=== PATIENT | male | born 1965 | race Caucasian/White ===

== ENCOUNTER 2016-10-10 07:42 | Inpatient (IN) | payer MEDICAID ==
[~2016-10-10] VITALS: Ht 182.9 cm; Wt 78.9 kg
[2016-10-10 07:42] VITALS: BP 106/71
[~2016-10-10 07:42] MED LIST: ATIVAN1 M1 PO; FOLATE1 MG PO; TAB-A-VITE1 TA3 PO; VITAMIN B1100 M3 PO
--- NOTE | 2016-10-10 07:49 | NUR ---
Patient amublated to bed 5.
--- NOTE | 2016-10-10 07:50 | NUR ---
51/M BIB EX c/o moderate tremors this am. PT STATES last drink of Vodka yesterday afternoon, admits daily drinker.unable to ambulate. denies visual hallucinations,hx seizure PT STATES HAS N/V BUT DENIES D; SKIN IS PINK/WARM/DRY; AAOX4 UNSTEADY GAIT; LUNGS CLEAR BL; HR EVEN AND REGULAR; PT DENIES ANY FEVER, CP, SOB, OR COUGH AT THIS TIME; PATIENT STATES PAIN OF 0/10 AT THIS TIME; VSS; PATIENT POSITIONED FOR COMFORT; HOB ELEVATED; BEDRAILS UP X2; BED DOWN. ER MD MADE AWARE OF PT STATUS.
--- NOTE | 2016-10-10 07:50 | NUR ---
Note undone in EDM - 10/10/16 at 0954 by MED1 51/M BIB EX c/o moderate tremors this am. PT STATES last drink of Vodka yesterday afternoon, admits daily drinker.unable to ambulate denies visual hallucinations,hx seizure PT STATES HAS N/V BUT DENIES D; SKIN IS PINK/WARM/DRY; AAOX4 UNSTEADY GAIT; LUNGS CLEAR BL; HR EVEN AND REGULAR; PT DENIES ANY FEVER, CP, SOB, OR COUGH AT THIS TIME; PATIENT STATES PAIN OF 0/10 AT THIS TIME; VSS; PATIENT POSITIONED FOR COMFORT; HOB ELEVATED; BEDRAILS UP X2; BED DOWN. ER MD MADE AWARE OF PT STATUS.
[2016-10-10] MEDS ORDERED: DIAZEPAM PFS 10 MG/2 ML SYR IVP ONE (08:10)
[2016-10-10] MEDS ORDERED: NACL 0.9% 1,000 ML IV ONE (08:10)
[2016-10-10] MEDS ORDERED: ONDANSETRON 4 MG/2 ML VIAL IVP ONE (08:15)
[2016-10-10] MEDS ORDERED: POTASSIUM CHLORIDE 10 MEQ TABER PO ONE (09:05)
[2016-10-10] MEDS: NACL 0.9% 1,000 ML IV SCH ×2 (09:18→15:43)
[2016-10-10] MEDS ORDERED: LORazepam 1 MG TAB PO PRN ×2 (09:20)
[2016-10-10] MEDS ORDERED: MULTIVITAMIN-12 10 ML, THIAMINE 100 MG, MAGNESIUM SULFATE 50% 2,000 MG, FOLIC ACID 5 MG... IV SCH (09:20)
[2016-10-10] MEDS ORDERED: MULTIVITAMIN-12 10 ML, THIAMINE 100 MG, MAGNESIUM SULFATE 50% 2,000 MG, FOLIC ACID 5 MG... IV ONE (09:20)
[2016-10-10] MEDS ORDERED: ONDANSETRON 4 MG/2 ML VIAL IVP PRN ×2 (09:20→09:50)
--- NOTE | 2016-10-10 09:40 | NUR ---
CALLED REPORT TO KARLIE NEVES
[2016-10-10] MEDS ORDERED: MORPHINE SULFATE 2 MG/ML SYR IVP PRN (09:50)
[2016-10-10] MEDS ORDERED: HYDROcodone/APAP 5/325 MG 1 TAB TAB PO PRN (09:50)
[2016-10-10] MEDS ORDERED: ALBUTEROL 0.083% 2.5 MG/3 ML NEBU IH PRN (09:50)
[2016-10-10] MEDS ORDERED: ZOLPIDEM 5 MG TAB PO PRN (09:55)
--- NOTE | 2016-10-10 09:58 | NUR ---
Patient will be admitted to care of [facility]. Admited to TELE. Will go to [id number]. Belongings list completed. Report to KARLIE NEVES.
--- NOTE | 2016-10-10 10:04 | NUR ---
PT ADMITTED TO TELEMETRY W/IV PATENT AND RUNNING.
--- NOTE | 2016-10-10 10:14 | NUR ---
PATIENT ADMITTED FROM ER. BROUGHT IN BY CHANTAL. PATIENT IS ALERT AND ORIENTED X4. DENIES N/V HAS TREMORS. DENIES PAIN. BROUGHT IN WITH BANANA BAG RUNNING @ 250ML/HR. IV TO RIGHT FOREARM AND LEFT FOREARM PATENT AND INTACT. PATIENT MADE AWARE OF HOSPITAL ENVIRONMENT AND CALL LIGHT. SAFETY MEASURES ENSURED. FALL PRECAUTIONS IN PLACE. PATIENT VERBALIZED UNDERSTANDING. WILL CONTINUE TO MONITOR.
[2016-10-10 10:25] VITALS: BP 157/88
[2016-10-10] MEDS ORDERED: LORazepam 2 MG/ML VIAL IVP PRN ×2 (10:30)
--- NOTE | 2016-10-10 10:30 | NUR ---
PATIENT SEEN BY PRIMARY MD AT BEDSIDE. PT MEDICATED FOR AGITATION/TREMORS. WILL CONTINUE TO MONITOR.
[2016-10-10] MEDS ORDERED: NICOTINE TRANSD SYS 21 MG/24 HR PATCH TD SCH (10:42)
[2016-10-10] MEDS ORDERED: PNEUMOCOCCAL VACCINE 23 MCG/0.5 ML VIAL IMVAC SCH (11:00)
[2016-10-10 12:00] VITALS: BP 132/81
[2016-10-10] MEDS ORDERED: MAG SULF 2000 MG/WATER PREMIX 50 ML IV SCH (12:00)
[2016-10-10] MEDS ORDERED: MAGNESIUM OXIDE 400 MG TAB PO SCH (12:00)
[2016-10-10] MEDS: LORazepam 1 MG TAB PO SCH ×3 (12:06→23:53)
[2016-10-10] MEDS ORDERED: LORazepam 1 MG TAB PO SCH (13:00)
--- NOTE | 2016-10-10 13:22 | NUR ---
PATIENT SLEEPING. NO S/S OF ACUTE DISTRESS. WILL CONTINUE TO MONITOR.
[2016-10-10] MEDS ORDERED: POTASSIUM CHLORIDE 40 MEQ, LIDOCAINE 1% 25 MG in NACL 0.9% 250 ML IV ONE (14:00)
--- NOTE | 2016-10-10 14:13 | NUR ---
PT SLEEPING, NO S/S OF ACUTE DISTRESS NOTED.
[2016-10-10 16:00] VITALS: BP 145/94
--- NOTE | 2016-10-10 16:00 | NUR ---
PATIENT SEEN BY DR. MCGEE. NEW RECOMMENDATIONS PLACED IN ORDERS BY
--- NOTE | 2016-10-10 17:00 | NUR ---
TREMORS STILL NOTED ON PATIENT PT TO BE MEDICATED ORDERED. NO S/S OF ACUTE DISTRESS.
--- NOTE | 2016-10-10 19:15 | NUR ---
ENDORSED PLAN OF CARE TO NIGHT RN AT PT BEDSIDE. NO S/S OF ACUTE DISTRESS.
--- NOTE | 2016-10-10 19:30 | NUR ---
RECEIVED BEDSIDE REPORT FROM EDINSON ZIEGLER. PATIENT IS ALERT, AWAKE, AND RESTING IN BED. NO SIGNS OF SOB OR RESPIRATORY DISTRESS NOTED. PATIENT IS RECEIVING OXYGEN THERAPY VIA NASAL CANNULA AT 2LPM. VITALS ARE WNL. NO REPORTS OF PAIN OR DISCOMFORT AT THIS TIME. THERE IS A #20 IN THE RIGHT FOREARM RECEIVING K-RIDER. SITE IS DRY, INTACT, AND PATENT. THERE IS ALSO A #18 IN THE LEFT FOREARM RECEIVING NORMAL SALINE AT 180 ML/HR. SITE IS DRY, INTACT, AND PATENT. SCDS ARE IN PLACE FOR VTE PROPHYLAXIS. EXPLAINED PLAN OF CARE TONIGHT TO INCLUDE VITALS Q4H, TELEMETRY MONITORING, AND SCHEDULED MEDICATION ADMINISTRATION. PATIENT VERBALIZED UNDERSTANDING. PATIENT'S NEEDS MET AT THIS TIME. SAFETY MEASURES ENFORCED, WITH CALL LIGHT WITHIN REACH. WILL CONTINUE TO MONITOR PATIENT.
[2016-10-10 20:00] VITALS: BP 133/81
--- NOTE | 2016-10-10 20:17 | NUR ---
NO DISTRESS/SOB/WHEEZING NOTED AT THIS TIME. NO INDICATION FOR HHN PRN TX.
--- NOTE | 2016-10-10 20:29 | NUR ---
PATIENT REQUESTED SCDS TO BE REMOVED FOR HS. EXPLAINED INDICATIONS AND BENEFITS FOR SCDS FOR VTE PROPHYLAXIS. PATIENT VERBALIZED UNDERSTANDING, BUT REQUESTED SCDS BE REMOVED FOR HS. PATIENT STATED "I'LL FALL ASLEEP AND THEN THEY WAKE ME UP BY SQUEEZING MY CALVES." PATIENT STATED IT IS OK TO REAPPLY IN THE MORNING. FOLLOWED UP WITH PATIENT'S REQUEST. WILL CONTINUE TO MONITOR.
[2016-10-10] MEDS: MAGNESIUM OXIDE 400 MG TAB PO SCH (20:30)
--- NOTE | 2016-10-10 20:32 | NUR ---
PATIENT TOLERATED SCHEDULED MEDICATION ADMINISTRATION WELL. NO SIGNS OF SOB OR DISTRESS NOTED. PATIENT'S NEEDS MET AT THIS TIME. SAFETY MEASURES ENFORCED, WITH CALL LIGHT WITHIN PATIENT'S REACH. CONTINUE TO MONITOR PATIENT.
--- NOTE | 2016-10-10 22:24 | NUR ---
ROUNDED ON PATIENT. PATIENT SLEEPING IN BED. NO SIGNS OF SOB OR DISTRESS NOTED. BREATHING IS EVEN AND UNLABORED. SAFETY MEASURES ENFORCED, WITH CALL LIGHT WITHIN REACH. WILL CONTINUE TO MONITOR PATIENT.
[2016-10-11] VITALS: BP 131/98
--- NOTE | 2016-10-11 00:12 | NUR ---
TOLERATED DUE MEDICATION. MORNING CARE RENDERED. CHANGED PATIENT'S LINENS AND GOWN. PATIENT'S NEEDS MET AT THIS TIME. SAFETY MEASURES ENFORCED, WITH CALL LIGHT WITHIN REACH. WILL CONTINUE TO MONITOR PATIENT.
--- NOTE | 2016-10-11 03:23 | NUR ---
PATIENT ASLEEP IN BED, BUT CAN BE AROUSED BY NAME. VITALS ARE STABLE. NO SIGNS OF SOB OR DISTRESS NOTED. NO REPORTS OF PAIN OR DISCOMFORT AT THIS TIME. SAFETY MEASURES ENFORCED, WITH CALL LIGHT WITHIN REACH. WILL CONTINUE TO MONITOR PATIENT.
[2016-10-11 04:00] VITALS: BP 146/88
[2016-10-11] MEDS: LORazepam 1 MG TAB PO SCH ×3 (05:44→17:30)
--- NOTE | 2016-10-11 05:45 | NUR ---
PATIENT ASLEEP IN BED, BUT IS AROUSED BY NAME. TOLERATED DUE MEDS WITH NO SIGNS OF SOB OR DISTRESS NOTED. SAFETY MEASURES ENFORCED, WITH CALL LIGHT WITHIN REACH. WILL CONTINUE TO MONITOR PATIENT.
--- NOTE | 2016-10-11 07:00 | NUR ---
PATIENT STABLE. ALL PATIENT'S NEEDS ATTENDED TO DURING SHIFT. ENDORSED CONTINUITY OF CARE TO EDINSON ZIEGLER.
--- NOTE | 2016-10-11 07:05 | NUR ---
RECEIVED REPORT FROM NIGHT RN AT PT BEDSIDE. PT RESTING IN BED. DENIES PAIN. AAOX4. MILD TREMORS NOTED BOTH UPPER EXTREMITIES. IV SITE PATENT AND INTACT. CALL LIGHT WITHIN REACH. SAFETY MEASURES ENSURED. WILL CONTINUE TO MONITOR.
[2016-10-11 08:00] VITALS: BP 128/76
[2016-10-11] MEDS: NICOTINE TRANSD SYS 21 MG/24 HR PATCH TD SCH (08:21)
[2016-10-11] MEDS: DOCUSATE SODIUM 100 MG GELCAP PO SCH (08:21)
[2016-10-11] MEDS: MAGNESIUM OXIDE 400 MG TAB PO SCH ×2 (08:21→21:06)
[2016-10-11] MEDS: MULTIVITAMIN 1 TAB PO SCH (08:21)
[2016-10-11] MEDS: THIAMINE 100 MG TAB PO SCH (08:21)
[2016-10-11] MEDS: FOLIC ACID 1 MG TAB PO SCH (08:21)
--- NOTE | 2016-10-11 08:40 | NUR ---
PATIENT ATE BREAKFAST WITHOUT ASSIST. NO S/S OF ACUTE DISTRESS. TREMORS NOTED. IV SITE PATENT AND INTACT. CALL LIGHT WITHIN REACH.
--- NOTE | 2016-10-11 09:02 | NUR ---
PATIENT HAS BEEN SCREENED AND CATEGORIZED MODERATE RISK. PATIENT WILL BE SEEN WITHIN 3-5 DAYS OF ADMISSION. 10/13/16 TO 10/15/[address]
--- NOTE | 2016-10-11 10:30 | NUR ---
PT SLEEPING. NO S/S OF DISTRESS NOTED.
[2016-10-11] MEDS: ACETAMINOPHEN 325 MG TAB PO PRN ×2 (11:37→17:34)
[2016-10-11 12:00] VITALS: BP 146/89
--- NOTE | 2016-10-11 13:15 | NUR ---
PATIENT SITTING UP AT BEDSIDE EATING LUNCH. PATIENT STILL HAVING MILD TREMORS, TOLERATING LUNCH WELL.
[2016-10-11 16:00] VITALS: BP 153/89
--- NOTE | 2016-10-11 16:20 | NUR ---
PT AMBULATED TO BATHROOM WITH ASSIST. NO S/S OF ACUTE DISTRESS.
--- NOTE | 2016-10-11 19:10 | NUR ---
NO DISTRESS/SOB/WHEEZING NOTED AT THIS TIME. NO INDICATION FOR HHN PRN TX.
--- NOTE | 2016-10-11 19:15 | NUR ---
ENDORSED PLAN OF CARE TO NIGHT RN. SBAR REPORT GIVEN AT BEDSIDE. NO S/S OF ACUTE DISTRESS.
[2016-10-11 19:45] VITALS: BP 142/81
--- NOTE | 2016-10-11 19:45 | NUR ---
RECEIVED PT IN STABLE CONDITION FROM [place] NURSE. ASLEEP BUR EASILY AROUSE WHEN NAME CALLED. ON TELE MONITOR-SR. NO C/O ANY PAIN. STILL WITH SOME TREMORS ON THE HANDS. V/S STABLE. PLAN OF CARE DISCUSSED AND VERBALIZED UNDERSTANDING. HL ON THE LT ARM #18. CALL LIGHT AND URINAL WITHIN EASY REACH. WILL CONTINUE TO MONITOR.
--- NOTE | 2016-10-11 22:00 | NUR ---
ASLEEP. NO S/S OF ANY DISCOMFORT NOR PAIN NOTED.
[2016-10-12] VITALS (7 sets, daily range): BP systolic 122–144; BP diastolic 65–90
[2016-10-12] MEDS: LORazepam 1 MG TAB PO SCH ×5 (00:04→23:58)
[2016-10-12] MEDS: ACETAMINOPHEN 325 MG TAB PO PRN ×3 (00:07→21:19)
--- NOTE | 2016-10-12 00:53 | NUR ---
SLEEPING WELL. NO S/S OF ANY DISCOMFORT NOTED. WILL CONTINUE TO MONITOR.
--- NOTE | 2016-10-12 03:15 | NUR ---
MADE ROUNDS. PT SLEEPING WELL AT THIS TIME.
--- NOTE | 2016-10-12 06:15 | NUR ---
BLOOD WAS DRAWN THI AM . WILL FOLLOW UP RESULT.
--- NOTE | 2016-10-12 07:20 | NUR ---
ENDORSED PT IN STABLE CONDITION TO AM NURSE.
--- NOTE | 2016-10-12 07:30 | NUR ---
RECEIVED BEDSIDE REPORT FROM NIGHT NURSE. AOX4, PT RESTING IN BED, ABLE TO VERBALIZE NEEDS. NO S/S OF CP, SOB OR ACUTE DISTRESS. IV SITE ASYMPTOMATIC, PATENT AND INTACT. SALINE LOCKED. REVIEWED AND DISCUSSED PLAN OF CARE WITH PT. PT VERBALIZES UNDERSTANDING. PT C/O PAIN ON BACK AND HIP, SEE PAIN ASSESSMENT, WILL GIVE PAIN MED ORDERED. SAFETY MEASURES ENSURED. CALL LIGHT WITHIN REACH. WILL CONTINUE TO MONITOR.
[2016-10-12] MEDS: MULTIVITAMIN 1 TAB PO SCH (08:39)
[2016-10-12] MEDS: NICOTINE TRANSD SYS 21 MG/24 HR PATCH TD SCH (08:39)
[2016-10-12] MEDS: DOCUSATE SODIUM 100 MG GELCAP PO SCH (08:39)
[2016-10-12] MEDS: FOLIC ACID 1 MG TAB PO SCH (08:39)
[2016-10-12] MEDS: CALCIUM GLUCONATE 500 MG TAB PO SCH (08:39)
[2016-10-12] MEDS: THIAMINE 100 MG TAB PO SCH (08:39)
--- NOTE | 2016-10-12 08:45 | NUR ---
ADMINISTERED MEDICATIONS WITH EDUCATION. PT VERBALIZES UNDERSTANDING. PT TOLERATES WELL. PT OBSERVED TO PERFORM ADLS INDEPENDENTLY. SAFETY MEASURES ENSURED. CALL LIGHT WITHIN REACH
--- NOTE | 2016-10-12 12:00 | NUR ---
ADMINISTERED MEDICATION WITH EDUCATION. PT VERBALIZES UNDERSTANDING, TOLERATED MEDS WELL. PT RESTING IN BED, SUPINE. ALL NEEDS MET. WILL CONTINUE TO MONITOR.
[2016-10-12] MEDS ORDERED: POTASSIUM CHLORIDE 10 MEQ TABER PO SCH (14:00)
[2016-10-12] MEDS: NACL 0.9% 1,000 ML IV SCH (15:59)
--- NOTE | 2016-10-12 16:00 | NUR ---
PT RESTING IN BED. ALL NEEDS MET. SAFETY MEASURES ENSURED. CALL LIGHT WITHIN REACH. WILL CONTINUE TO MONITOR.
--- NOTE | 2016-10-12 19:23 | NUR ---
ENDORSED PLAN OF CARE TO NIGHT NURSE. CONDITION STABLE.
--- NOTE | 2016-10-12 19:30 | NUR ---
RECEIVED PT IN STABLE CONDITION FROM AM NURSE. AWAKE,ALERT AND ORIENTED X4. ON TELE MONITOR. NO C/O ANY DISCOMFORT AT THIS TIME. WITH IVF INFUSING WELL ON THE LT FA #18. CLEAR AND PATENT. SIDE RAILS ARE PADDED FOR SEIZURE PRECAUTION. PT STILL WITH SOME TREMORS ON THE HANDS. PLAN OF CARE DISCUSSED AND VERBALIZED UNDERSTANDING. CALL LIGHT AND URINAL PLACED WITHIN EASY REACH. WILL CONTINUE TO MONITOR.
--- NOTE | 2016-10-12 22:20 | NUR ---
SLEEPING AT THIS TIME. NOS/S OF ANY DISCOMFORT NOR PAIN NOTED.
--- NOTE | 2016-10-13 00:30 | NUR ---
AWAKE, BUT NO C/O ANY DISCOMFORT. WILL CONTINUE TO MONITOR.
--- NOTE | 2016-10-13 03:00 | NUR ---
SLEEPING WELL WITH NO S/S OF ANY DISCOMFORT NOR PAIN NOTED.
[2016-10-13 04:19] VITALS: BP 124/83
[2016-10-13] MEDS: LORazepam 1 MG TAB PO SCH ×4 (05:49→23:26)
--- NOTE | 2016-10-13 07:30 | NUR ---
RECEIVED PT IN BED, ALERT, AWAKE, ORIENTED X 4. NO SOB NOTED, BREATHING EVEN AND UNLABORED. DENIES ANY PAIN OR DISCOMFORT AT THIS TIME. POSITIVE BOWEL SOUNDS NOTED ON FOUR QUADRANTS. AMBULATORY WITH ASSIST. SKIN INTACT. DENIES ANY PROBLEM WITH BOWEL OR BLADDER ELIMINATION. SAFETY PRECAUTION IN PLACE, CALL LIGHT WITHIN REACH.
--- NOTE | 2016-10-13 07:30 | NUR ---
ENDORSED PT IN STABLE CONDITION TO AM NURSE.
[2016-10-13 08:00] VITALS: BP 126/82
[2016-10-13] MEDS: NACL 0.9% 1,000 ML IV SCH (08:15)
[2016-10-13] MEDS: NICOTINE TRANSD SYS 21 MG/24 HR PATCH TD SCH (09:36)
[2016-10-13] MEDS: THIAMINE 100 MG TAB PO SCH (09:36)
[2016-10-13] MEDS: FOLIC ACID 1 MG TAB PO SCH (09:37)
[2016-10-13] MEDS: ESCITALOPRAM 20 MG TAB PO SCH (09:37)
[2016-10-13] MEDS: MULTIVITAMIN 1 TAB PO SCH (09:37)
[2016-10-13] MEDS: DOCUSATE SODIUM 100 MG GELCAP PO SCH (09:37)
[2016-10-13] MEDS: CALCIUM GLUCONATE 500 MG TAB PO SCH (09:47)
--- NOTE | 2016-10-13 11:24 | NUR ---
PROVIDED PT WITH ALCOHOL ABUSE PACKET. EXPLAINED CONTENTS TO PT. PT VERBALIZED UNDERSTANDING. ASSISTED PT TO AMBULATE AT THE HALLWAY PER MD ORDER, PT UNSTABLE, WITH SHAKINESS OBSERVED. PT VERBALIZED HE GOT A LITTLE DIZZY, ASSISTED PT TO SIT ON HIS BED. REMINDED PT TO CALL FOR ASSISTANCE WHENEVER AMBULATING. PT ON STABLE CONDITION.
[2016-10-13 12:00] VITALS: BP 116/80
[2016-10-13] MEDS ORDERED: NATURE'S BLEND F1 M1 PO (12:39)
[2016-10-13] MEDS ORDERED: THIAMINE HCL PO (12:39)
[2016-10-13] MEDS ORDERED: ESCITALOPRAM10 MG PO (12:39)
[2016-10-13] MEDS ORDERED: ATIVAN1 MG PO (12:39)
--- NOTE | 2016-10-13 13:16 | NUR ---
LATE ENTRY AT 1300, PT VERBALIZED THAT HE HAD FALLEN ON HIS KNEES AT THE SIDE OF THE BED UNWITNESSED. VITAL SIGNS STABLE. PT ALERT ORIENTED. NO SOB NOTED. DR. BLANCO MADE AWARE. DR. ROSADO ORDER PHYSICAL THERAPY BEFORE DISCHARGE.
[2016-10-13] MEDS: ACETAMINOPHEN 325 MG TAB PO PRN (15:28)
[2016-10-13 16:00] VITALS: BP 131/80
--- NOTE | 2016-10-13 16:21 | NUR ---
CM NOTE: FIDEL KAUR SPOKE TO ALEXUS FROM [facility]. HE SAID TO FAX PT'S FACE SHEET, DOCTOR'S ORDER, PT NOTES, H&P, HEIGHT & WEIGHT. HE ALSO SAID THEY CAN DELIVER THE WALKER TO [facility] AFTER 8 PM OR TOMORROW AT PT'S HOME. FAXED PACKET TO [facility] FAX # [phone].
--- NOTE | 2016-10-13 16:50 | NUR ---
CM NOTE: CALLED [facility] ([phone]) TO FOLLOW UP THE WALKER. PER MARKOS, THEY DIDN'T GET THE PT'S PACKET YET, SHE SAID IT TAKES AN HOUR FOR THEM TO RECEIVE A FAX.
--- NOTE | 2016-10-13 17:00 | NUR ---
CM NOTE: FAXED PT'S PACKET TO [facility] FOR HH SAFETY EVAL. FAX # [phone], ([facility])
--- NOTE | 2016-10-13 17:01 | NUR ---
FIDEL NOTE: FIDEL KAUR SPOKE TO ALEXUS DAVIS [facility] FOR [employer]. HE SAID WHEN APPROVED, THEY WILL DELIVER THE WALKER TO PATIENT'S HOME TOMORROW.
--- NOTE | 2016-10-13 17:05 | NUR ---
SPOKE WITH JLUIS, STATED THERE IS NO APPROVAL FOR FRONT WHEEL WALKER YET FROM [facility] AND IF APPROVED, IT WON'T BE DELIVERED UNTIL TOMORROW. PT VERBALIZED THAT HE WANTS TO GO HOME TODAY AND THAT THERE WILL BE SOMEBODY TO HELP HIM OUT IN HIS HOUSE (HIS EX- RUTHY AND HIS SONS) WILL BE THERE 19/01. INSTRUCTED PT TO CALL FOR ASSISTANCE FROM EX OR SONS OR NOT TO GET UP ALONE TO PREVENT FROM FALLING. PT VERBALIZED FULL UNDERSTANDING.
--- NOTE | 2016-10-13 17:11 | NUR ---
DOUBLE CHECKED WITH PT HIS RIGHT ADDRESS AND PHONE NUMBER FROM THE FACE SHEET, PT STATED EVERYTHING IS CORRECT. VINCENT MADE AWARE AND STATED SHE WILL NOTIFY [facility] TO DELIVER THE FWW AT PT'S ADDRESS WHEN APPROVED. DR. BLANCO AT PT'S BEDSIDE AND MADE AWARE.
--- NOTE | 2016-10-13 17:45 | NUR ---
PT'S EX- SPOKE WITH PT OVER THE PHONE, STATED THAT PT'S 3 SONS DECIDED NOT TO LET PT GO HOME UNTIL PT GETS HIS WALKER AND ALSO PT GETS TO CHECK IN WITH ALCOHOLIC SOBRIETY FACILITY. VINCENT PULLER OVER AND DR. BLANCO NOTIFIED. PER VINCENT, SHE WILL CHANGE THE ADDRESS DELIVERY OF FWW BACK TO [facility].
[2016-10-13] MEDS ORDERED: ALBUTEROL SULFATE/IPRATROPIU 3 ML SOL IH PRN (18:05)
--- NOTE | 2016-10-13 18:15 | NUR ---
pt's status changed to med surg, telebox removed.
--- NOTE | 2016-10-13 19:30 | NUR ---
ENDORSED TO THE UPCOMING SHIFT ON STABLE CONDITION.
--- NOTE | 2016-10-13 19:30 | NUR ---
RECEIVED REPORT FROM TRACI RN AT BEDSIDE. PT IS ALERT AWAKE ORIENTED X4. INITIAL ASSESSMENT DONE. NO S/S OF RESPIRATORY DISTRESS OR SOB NOTED. NO C/O PAIN OR ANY DISCOMFORT AT THIS TIME. PLAN OF CARE REVIEWED TO PT AND VERBALIZED UNDERSTANDING. CALL LIGHT WITHIN REACH. WILL CONTINUE TO MONITOR.
[2016-10-14] VITALS: BP 137/94
--- NOTE | 2016-10-14 00:45 | NUR ---
PT IS SLEEPING RIGHT NOW BUT EASILY AROUSABLE. NO S/S OF ANY DISCOMFORT AT THIS TIME. ALL NEEDS ARE ATTENDED. CALL LIGHT WITHIN REACH. WILL CONTINUE TO MONITOR.
[2016-10-14] MEDS: LORazepam 1 MG TAB PO SCH ×2 (05:08→12:10)
--- NOTE | 2016-10-14 05:30 | NUR ---
AM CARE RENDERED. BED LINEN CHANGED. INSTRUCTED PT TO REPOSITION. KEPT CLEAN AND DRY. CALL LIGHT WITHIN REACH. WILL CONTINUE TO MONITOR.
--- NOTE | 2016-10-14 07:30 | NUR ---
PT HAS NO S/S OF ANY DISCOMFORT. PLAN OF CARE ENDORSE TO AM SHIFT NURSE FOR CONTINUITY OF CARE.
--- NOTE | 2016-10-14 07:30 | NUR ---
ASSUMED CONTINUITY OF CARE. NO SIGNS AND SYMPTOMS OF ACUTE DISTRESS NOTED. INITIAL ASSESSMENT DONE. HOB ELEVATED. KEEP COMFORTABLE ON BED. EXPLAINED DIAGNOSIS, PLAN OF CARE, PAIN MANAGEMENT TEACHING, USE OF CALL LIGHT/BED/TV/BATHROOM. VERBALIZED UNDERSTANDING. SEIZURE AND FALL PRECAUTION APPLIED. CALL LIGHT WITHIN REACH.
[2016-10-14 08:00] VITALS: BP 135/84
--- NOTE | 2016-10-14 08:14 | NUR ---
SPOKE TO ALEXUS DAVIS FROM [facility] ([phone]). HE WILL TRY TO DELIVER THE FRONT WHEEL WALKER TODAY BEFORE 12 NN.
[2016-10-14] MEDS: DOCUSATE SODIUM 100 MG GELCAP PO SCH (08:42)
[2016-10-14] MEDS: CALCIUM GLUCONATE 500 MG TAB PO SCH (08:42)
[2016-10-14] MEDS: THIAMINE 100 MG TAB PO SCH (08:42)
[2016-10-14] MEDS: MULTIVITAMIN 1 TAB PO SCH (08:42)
[2016-10-14] MEDS: FOLIC ACID 1 MG TAB PO SCH (08:42)
[2016-10-14] MEDS: NICOTINE TRANSD SYS 21 MG/24 HR PATCH TD SCH (08:43)
[2016-10-14] MEDS: ESCITALOPRAM 20 MG TAB PO SCH (08:46)
--- NOTE | 2016-10-14 09:00 | NUR ---
PHYSICAL THERAPIST CAME FOR PT. PT. TREATMENT. TOLERATED WELL. NO C/O PAIN. NO SOB, NOTED.
--- NOTE | 2016-10-14 09:29 | NUR ---
CM NOTE: SPOKE TO KENNEDY FROM [facility] ([phone]) FOR HOME HEALTH SAFETY EVAL. SHE WILL CALL DR. PERLA, ATTENDING PHYSICIAN OF THE PT, TO ASK SOME INFORMATION AND SHE WILL ASK HER MOTOR REBUILDER FOR APPROVAL TO ACCEPT THE PATIENT.
[2016-10-14 11:59] VITALS: BP 112/76
--- NOTE | 2016-10-14 13:36 | NUR ---
FIDEL NOTE: ALEXUS FROM [employer] DELIVERED THE FRONT WHEEL WALKER TO PT AT ROOM 112A.
--- NOTE | 2016-10-14 14:15 | NUR ---
EXPLAINED MD D/C INSTRUCTIONS AND TEACHING, MD D/C PRESCRIPTION LIST EDUCATION, MD FOLLOW-UP, SMOKING CESSATION, DISEASE MANAGEMENT. VERBALIZED UNDERSTANDING. D/C HOME VIA WHEELCHAIR. IN STABLE CONDITION. INFORMED CHARGE NURSE KENNETH LIM.
--- NOTE | 2016-10-14 14:24 | NUR ---
FIDEL NOTE: SPOKE TO KENNEDY FROM [facility]. THEY ACCEPTED THE PATIENT FOR HOME HEALTH SAFETY EVAL. THEY WILL VISIT THE PATIENT AT [facility] IN [place] ( PER PATIENT, HE WILL STAY AT [facility] UNTIL 10/17/16) WITHIN 48 HRS UPON DISCHARGE.
[2016-10-31] MEDS ORDERED: ESCITALOPRAM10 MG PO (15:51)
[2016-10-31] MEDS ORDERED: THIAMINE HCL PO (15:51)
[2016-10-31] MEDS ORDERED: TAB-A-VITE1 TA3 PO (15:51)
[2016-10-31] MEDS ORDERED: ATIVAN1 MG PO (15:51)
[2016-10-31] MEDS ORDERED: NATURE'S BLEND F1 M1 PO (15:51)
[2016-10-31] MEDS ORDERED: NICOTINE TD (15:51)
[2016-10-31] MEDS ORDERED: KEPPRA500 MG PO (15:51)
[2016-11-11] MEDS ORDERED: ATIVAN1 M1 PO (16:08)
[2016-11-11] MEDS ORDERED: KEPPRA500 MG PO ×2 (17:02→17:05)
[2016-11-11] MEDS ORDERED: LEVAQUIN250 M1 PO (17:02)
== END 2016-10-14 14:15 | disposition home or self-care (01) | DRG 775 ==
LOC: MED 07:42 → MTU 09:13
PROVIDERS: ADMIT Family Medicine; ATTEND Family Medicine
DX: F10.239 Alcohol dependence with withdrawal, unspecified (principal); N17.0 Acute kidney failure with tubular necrosis; G92 Toxic encephalopathy; E87.2 Acidosis; F33.1 Major depressive disorder, recurrent, moderate; F10.229 Alcohol dependence with intoxication, unspecified; Y90.4 Blood alcohol level of 80-99 mg/100 ml; E78.5 Hyperlipidemia, unspecified; I10 Essential (primary) hypertension; F17.210 Nicotine dependence, cigarettes, uncomplicated; E83.42 Hypomagnesemia; D75.89 Other specified diseases of blood and blood-forming organs; Z53.29 Procedure and treatment not carried out because of patient's decision for other reasons; R74.0 Nonspecific elevation of levels of transaminase and lactic acid dehydrogenase [LDH]; R00.0 Tachycardia, unspecified; E87.1 Hypo-osmolality and hyponatremia; E87.6 Hypokalemia; Z88.0 Allergy status to penicillin; Z79.899 Other long term (current) drug therapy; Z56.0 Unemployment, unspecified; Z71.6 Tobacco abuse counseling; Z88.5 Allergy status to narcotic agent

== ENCOUNTER 2016-10-29 07:36 | Inpatient (IN) | payer MEDICAID ==
[~2016-10-29] VITALS: Ht 182.9 cm; Wt 79.8 kg
[~2016-10-29 07:36] MED LIST changes: -ATIVAN1 M1 PO; +ESCI10TA61 PO; -FOLATE1 MG PO; +FOLI1TAB90 PO; +LORA-476 PO; +MULT-405 PO; -TAB-A-VITE1 TA3 PO; +THIA500T9 PO; -VITAMIN B1100 M3 PO
[2016-10-29 07:41] VITALS: BP 131/86
--- NOTE | 2016-10-29 07:47 | NUR ---
Dr. Fontenot evaluating patient at bedside.
--- NOTE | 2016-10-29 07:47 | NUR ---
Patient taken to bed 06 via wheelchair per tech.
[2016-10-29] MEDS ORDERED: MULTIVITAMIN-12 10 ML, THIAMINE 100 MG, MAGNESIUM SULFATE 50% 2,000 MG, FOLIC ACID 5 MG... IV ONE ×5 (07:50)
[2016-10-29] MEDS ORDERED: LORazepam 2 MG/ML VIAL IVP ONE ×2 (07:50→08:15)
--- NOTE | 2016-10-29 08:00 | NUR ---
XRAY at bedside.
--- NOTE | 2016-10-29 08:11 | NUR ---
51/M bib his son for evaluation of alcohol withdrawal. Patient states he has been binge drinking and stopped Thursday night. Pt states he drinks Vodka and states "I want to quit." Patient also reports having a seizure this morning. Patient also states he had a seizure last week. Patient is AOX4. Patient noted with severe tremors and shakiness. Patient denies any fever or chills. Denies N/V/D but patient states "I haven't really ate much since Thursday." Patient placed in a gown, placed on tar heat exchanger cleaner, pulse oximetry, blood pressure monitoring. All belongings placed in belongings bag and placed behind the patient's head on the gurney and made the patient aware and he verbalized understanding.
[2016-10-29 08:24] LABS: BASOPHILS % (AUTO) 0.5 % (0.0-2.0); HEMATOCRIT 43.4 % (36-52); HEMOGLOBIN 14.3 g/dL (12.0-18.0); LYMPHOCYTES # (AUTO) 0.4 K/uL (2.0-11.5); MEAN CORPUSCULAR HEMOGLOBIN 32 pg (27-31); MEAN CORPUSCULAR HGB CONC 33 g/dL (33-37); MEAN CORPUSCULAR VOLUME 98 fL (80-94); MONOCYTES # (AUTO) 0.6 K/uL (0.8-1.0); MONOCYTES % (AUTO) 10.1 % (1.7-9.3); NEUTROPHILS # (AUTO) 5.1 K/uL (1.8-7.7); NEUTROPHILS % (AUTO) 83.4 % (42.2-75.2); PLATELET COUNT (AUTO) 243 K/uL (140-450); RED BLOOD CELL COUNT(AUTO) 4.41 MIL/uL (4.20-6.10); RED CELL DISTRIBUTION WIDTH 16.5 % (11.6-13.7)
--- NOTE | 2016-10-29 08:25 | NUR ---
Patient appears to be resting comfortably at this time. IV fluids running with no signs of infiltration. VSS. HR 103 sinus tachycardia, O2 94 % on 2 L nasal canula.
[2016-10-29 08:48] LABS: INR 1.1 (0.8-1.2); PARTIAL THROMBOPLASTIN TIME 24.9 secs (22-35.6)
[2016-10-29 08:51] LABS: CREATININE 0.9 mg/dL (0.6-1.3)
[2016-10-29 08:52] LABS: WHITE BLOOD COUNT (AUTO) 6.1 K/uL (4.8-10.8)
--- NOTE | 2016-10-29 08:53 | NUR ---
Patient appears to be resting comfortably in bed. Vital Signs within normal limits. Respirations even and unlabored.
[2016-10-29 08:56] LABS: ALBUMIN 3.8 g/dL (3.4-5.0); TOTAL BILIRUBIN 1.9 mg/dL (0.0-1.0); TOTAL PROTEIN, SERUM 7.1 g/dL (6.4-8.2)
[2016-10-29] MEDS ORDERED: KCL 20 MEQ/WATER INJ PREMIX 200 ML IV ONE (09:00)
[2016-10-29] MEDS ORDERED: HYDROcodone/APAP 5/325 MG 1 TAB TAB PO PRN (09:50)
[2016-10-29] MEDS ORDERED: ACETAMINOPHEN 325 MG TAB PO PRN (09:50)
[2016-10-29] MEDS ORDERED: ONDANSETRON 4 MG/2 ML VIAL IVP PRN (09:50)
--- NOTE | 2016-10-29 09:55 | NUR ---
Patient will be admitted to care of Dr. Renteria. Admited to TELE. Will go to room 107-A. Belongings list completed. Report to Liz ZIEGLER.
--- NOTE | 2016-10-29 10:12 | NUR ---
Patient taken to TELEMETRY via demarcus martinez/RN.
--- NOTE | 2016-10-29 10:20 | NUR ---
PT BROUGHT IN FROM ER IN [facility], PT SLEEPY, AROUSABLE BY VOICE, OX4, RESP EVEN UNLABORED ON 2L NC O2, NEUROLOGICALLY INTACT, MOD TREMORS NOTED IN BILAT HANDS/ARMS, IVF INFUSING TO LEFT HAND IV 20G SITE CLEAR, PT DENIES PAIN OR DISCOMFORT, VITALS STABLE, PLACED ON BOW MAKING MACHINE OPERATOR, PT ORIENTED TO ROOM AND FLOOR, CALL MORILLO WITHIN REACH, SIDE RAILS UP X2, BED LOCKED IN LOW POSTION, SEIZURE PADS IN PLACE, PLAN OF CARE DISCUSSED, ADMISSION ASSESSMENT DONE, PT DENIES ANY IMMEDIATE NEEDS, WILL CONTINUE TO MONITOR
[2016-10-29 10:25] VITALS: BP 136/77
[2016-10-29 12:00] VITALS: BP 144/86
--- NOTE | 2016-10-29 12:45 | NUR ---
PT ATTEMPTED TO GET OUT OF BED WITH RN AT BEDSIDE, TOO UNSTEADY FOR AMBULATION AT THIS TIME, PT RETURNED TO BED IMMEDIATELY, URINAL AT BEDSIDE, PT INSTRUCTED TO STAY IN BED AND CALL FOR ASSIST IF NEEDED, PT VERBALIZED FULL UNDERSTANDING. CALL MORILLO WITHIN REACH, BED ALARM ON, SIDE RAILS UPX2, BED LOCKED IN LOW POSITION, SEIZURE PADS IN PLACE, WILL CONTINUE TO MONITOR
[2016-10-29] MEDS: LORazepam 1 MG TAB PO SCH ×2 (13:19→20:39)
[2016-10-29] MEDS: DEXT 5% /NACL 0.9% 1,000 ML IV SCH ×2 (13:20→19:50)
--- NOTE | 2016-10-29 14:00 | NUR ---
RHYS CARL MADE AWARE OF PT'S SOCIAL SITUATION, PT HAS NO STEADY RESIDENCE, HE LIVES IN A MOTEL WITH HIS 24YO SON, PT REPORTS BEING AN ALCOHOLIC BUT HAS BEEN ATTEMPTING TO QUIT FOR SOMETIME WITHOUT SUCCESS, PT STATES HE IS LOOKING FOR A REHAB FACILITY. RHYS SERVICE TO SEE PT TOMORROW PER SIDDHARTHA.
--- NOTE | 2016-10-29 15:00 | NUR ---
DR QUINN CONTACTED TO FOR NICOTINE PATCH ORDER REQUESTED BY PT, TELEPHONE ORDER RECEIVED.
[2016-10-29] MEDS ORDERED: NICOTINE TRANSD SYS 7 MG/24 HR PATCH TD SCH (15:12)
[2016-10-29] MEDS: NICOTINE TRANSD SYS 7 MG/24 HR PATCH TD SCH (15:51)
[2016-10-29 16:00] VITALS: BP 150/82
[2016-10-29] MEDS: LORazepam 2 MG/ML VIAL IVP PRN (17:11)
--- NOTE | 2016-10-29 17:11 | NUR ---
PT WITH SIGNIFICANT TREMORS, STATES FEELS ANXIOUS, AND REPORTS SLIGHT MENDIETA, HR 100, BP 150/82, PRN ATIVAN GIVEN AT THIS TIME, PT REMAINS ON HOME DELIVERY DRIVER, SZ PRECAUTION, ALL SAFETY MEASURES IN PLACE, WILL CONTINUE TO MONITOR
--- NOTE | 2016-10-29 18:20 | NUR ---
PT SLEEPING QUIETLY IN NAD, RESP EVEN UNLABORED ON ROOM AIR, PT REMAINS ON WINE CONSULTANT, SZ PRECAUTIONS IN PLACE, OTHER SAFETY MEASURES IN PLACE, CALL MORILLO WITHIN REACH, WILL CONTINUE TO MONITOR
--- NOTE | 2016-10-29 19:05 | NUR ---
RECEIVED REPORT FROM KARLIE GUNN AT BEDSIDE. INITIAL ASSESSMENT COMPLETED. PT AAOX4. PT EATING DINNER AT THIS TIME. PT STABLE. PT HAS IV ON RIGHT FOREARM G 18 INFUSING FLUIDS AND LEFT HAND G 20 SL. PT'S SKIN IS INTACT. ORIENTED PT TO ROOM AND SURROUNDINGS AND USE OF CALL LIGHT. PT PLACE ON SAFETY/SEIZURE PRECAUTIONS. CALL LIGHT WITHIN REACH.
--- NOTE | 2016-10-29 19:22 | NUR ---
REPORT GIVEN TO TRAINING MGR RN, PT IN STABLE CONDITION.
[2016-10-29 20:00] VITALS: BP 138/96
--- NOTE | 2016-10-29 20:42 | NUR ---
PT TOLERATED 2100 MED WELL. WILL CONTINUE TO MONITOR PT.
--- NOTE | 2016-10-29 22:50 | NUR ---
PT USING URINAL. PT DENIES PAIN, WILL CONTINUE TO MONITOR PT.
[2016-10-30] VITALS: BP 135/91
[2016-10-30] MEDS: DEXT 5% /NACL 0.9% 1,000 ML IV SCH ×2 (00:10→16:26)
--- NOTE | 2016-10-30 01:10 | NUR ---
PT SLEEPING AT THIS TIME. NO SIGNS OF DISTRESS NOTED. WILL CONTINUE TO MONITOR PT.
--- NOTE | 2016-10-30 02:58 | NUR ---
PT USING URINAL SITTING AT BEDSIDE. PT STABLE; WILL CONTINUE TO MONITOR PT.
[2016-10-30 04:00] VITALS: BP 128/81
[2016-10-30] MEDS: LORazepam 1 MG TAB PO SCH ×3 (04:14→21:34)
--- NOTE | 2016-10-30 04:20 | NUR ---
CHECKED ON PT. VS STABLE. 0500 MED GIVEN; CALL LIGHT WITHIN REACH.
[2016-10-30 06:53] LABS: BASOPHILS # (AUTO) 0.1 K/uL (0.00-0.22); BASOPHILS % (AUTO) 1.7 % (0.0-2.0); EOSINOPHILS # (AUTO) 0.1 K/uL (0-0.4); EOSINOPHILS % (AUTO) 2.1 % (0.0-4.0); HEMATOCRIT 39.9 % (36-52); HEMOGLOBIN 13.5 g/dL (12.0-18.0); LYMPHOCYTES # (AUTO) 0.9 K/uL (2.0-11.5); LYMPHOCYTES % (AUTO) 24.6 % (20.5-51.1); MEAN CORPUSCULAR HEMOGLOBIN 33 pg (27-31); MEAN CORPUSCULAR HGB CONC 34 g/dL (33-37); MEAN CORPUSCULAR VOLUME 99 fL (80-94); MONOCYTES # (AUTO) 0.3 K/uL (0.8-1.0); NEUTROPHILS # (AUTO) 2.4 K/uL (1.8-7.7); NEUTROPHILS % (AUTO) 63.6 % (42.2-75.2); PLATELET COUNT (AUTO) 144 K/uL (140-450); RED BLOOD CELL COUNT(AUTO) 4.05 MIL/uL (4.20-6.10); RED CELL DISTRIBUTION WIDTH 15.9 % (11.6-13.7); WHITE BLOOD COUNT (AUTO) 3.8 K/uL (4.8-10.8)
[2016-10-30 06:54] LABS: AMYLASE 16 U/L (25-115); LIPASE 146 U/L (73-393)
--- NOTE | 2016-10-30 07:05 | NUR ---
RECEIVED REPORT FROM NIGHT NURSE. PT IS AAOX4. PT AMB WITH STANDBY ASSIST TO THE RESTROOM. PT HAS UNSTEADY GAIT. PT ON ROOM AIR. IV NOTED ON THE R FA PATENT AND INTACT WITH IVF RUNNING. PT DENIES PAIN AND SHOWS NO S/S OF DISTRESS. SKIN IS INTACT. PT BED LOWERED, FLAT, WITH CALL LIGHT WITHIN REACH.
[2016-10-30 07:12] LABS: ALBUMIN 3.1 g/dL (3.4-5.0); ANION GAP 8.7 (8-16); CARBON DIOXIDE 31.1 mmol/L (21-32); CREATININE 0.6 mg/dL (0.6-1.3); TOTAL BILIRUBIN 1.7 mg/dL (0.0-1.0); TOTAL PROTEIN, SERUM 5.9 g/dL (6.4-8.2)
[2016-10-30 07:25] LABS: POTASSIUM 2.8 mmol/L (3.5-5.1)
--- NOTE | 2016-10-30 07:25 | NUR ---
JOSÉ ANTONIO FROM LAB NOTIFIED ME OF PT POTASSIUM OF 2.8. DR. QUINN WAS PAGED WILL AWAIT FOR ORDERS.
--- NOTE | 2016-10-30 07:32 | NUR ---
ENDORSED PLAN OF CARE TO DAY SHIFT NURSE. PT IN STABLE CONDITION.
--- NOTE | 2016-10-30 07:40 | NUR ---
RECEIVED ORDERS FROM DR Marli QUINN.
[2016-10-30 08:00] VITALS: BP 138/88
[2016-10-30] MEDS: MULTIVITAMIN 1 TAB PO SCH (08:59)
[2016-10-30] MEDS: FOLIC ACID 1 MG TAB PO SCH (08:59)
[2016-10-30] MEDS: THIAMINE 100 MG TAB PO SCH (08:59)
[2016-10-30] MEDS ORDERED: POTASSIUM CHLORIDE 40 MEQ, LIDOCAINE 1% 25 MG in NACL 0.9% 250 ML IV SCH (09:00)
[2016-10-30] MEDS: NICOTINE TRANSD SYS 7 MG/24 HR PATCH TD SCH (09:25)
--- NOTE | 2016-10-30 09:26 | NUR ---
NICOTINE PATCH NOT ADMINISTERED ON 09/29. PATIENT REQUESTING FOR A PATCH. ADMINISTERED SCHEDULED DOSE FOR 10/01
--- NOTE | 2016-10-30 10:13 | NUR ---
PATIENT HAS BEEN SCREENED AND CATEGORIZED LOW NUTRITION RISK. PATIENT WILL BE SEEN WITHIN 7 DAYS OF ADMISSION. 11/04/[address]
--- NOTE | 2016-10-30 11:00 | NUR ---
PT IN BED SLEEPING SHOWS NO S/S OF DISTRESS.
[2016-10-30 12:00] VITALS: BP 133/92
--- NOTE | 2016-10-30 13:00 | NUR ---
PT IS IN BED AND SHOWS NO S/S OF DISTRESS
--- NOTE | 2016-10-30 15:11 | NUR ---
DR. CHIN AND DR. AMADOR WAS NOTIFIED REGARDING CONSULT AND MADE AWARE.
[2016-10-30 16:00] VITALS: BP 128/87
--- NOTE | 2016-10-30 17:50 | NUR ---
PT IS BEING SEEN BY [employer] SKI MAKER.
--- NOTE | 2016-10-30 18:00 | NUR ---
PT IS IN BED EATING DINNER. PT SHOWS NO S/S OF DISTRESS. WILL CONTINUE TO MONITOR.
--- NOTE | 2016-10-30 19:05 | NUR ---
GAVE REPORT AT BEDSIDE TO NIGHT NURSE. PT ENDORSED IN STABLE CONDITION.
--- NOTE | 2016-10-30 19:45 | NUR ---
RECEIVED PPT IN STABLE CONDITION FROM AM NURSE. AWAKE,ALERT AND ORIENTED X4. ON TELE MONITOR -SR. NO ACUTE DISTRESS NOTED. WITH IVF INFUSING WELL ON THE RT FA#[id number]. CLEAR AND PATENT. PLAN OF CARE DISCUSSED AND VERBALIZED UNDERSTANDING. CALL LIGHT AND URINAL PLACED WITHIN EASY REACH. SIDE RAILS PADDED FOR SEIZURE PRECAUTIONS. WILL CONTINUE TO MONITOR
[2016-10-30 20:00] VITALS: BP 124/87
[2016-10-30] MEDS ORDERED: VALPROIC ACID 250 MG/5 ML UDC PO SCH (21:00)
[2016-10-31] VITALS: BP 127/91
[2016-10-31] MEDS: DEXT 5% /NACL 0.9% 1,000 ML IV SCH (01:44)
--- NOTE | 2016-10-31 03:01 | NUR ---
PT IS ASLEEP. NO MORE S/S OF ANY PAIN NOR DISCOMFORT NOTED.
[2016-10-31 04:00] VITALS: BP 130/73
[2016-10-31 05:34] LABS: BASOPHILS # (AUTO) 0.1 K/uL (0.00-0.22); EOSINOPHILS # (AUTO) 0.1 K/uL (0-0.4); EOSINOPHILS % (AUTO) 1.4 % (0.0-4.0); HEMATOCRIT 40.8 % (36-52); HEMOGLOBIN 13.8 g/dL (12.0-18.0); LYMPHOCYTES # (AUTO) 1.1 K/uL (2.0-11.5); LYMPHOCYTES % (AUTO) 16.6 % (20.5-51.1); MEAN CORPUSCULAR HEMOGLOBIN 33 pg (27-31); MEAN CORPUSCULAR HGB CONC 34 g/dL (33-37); MEAN CORPUSCULAR VOLUME 99 fL (80-94); MONOCYTES # (AUTO) 0.5 K/uL (0.8-1.0); MONOCYTES % (AUTO) 7.1 % (1.7-9.3); NEUTROPHILS # (AUTO) 4.6 K/uL (1.8-7.7); NEUTROPHILS % (AUTO) 72.9 % (42.2-75.2); PLATELET COUNT (AUTO) 127 K/uL (140-450); RED BLOOD CELL COUNT(AUTO) 4.14 MIL/uL (4.20-6.10); RED CELL DISTRIBUTION WIDTH 15.9 % (11.6-13.7); WHITE BLOOD COUNT (AUTO) 6.4 K/uL (4.8-10.8)
[2016-10-31 06:11] LABS: ALBUMIN 3.1 g/dL (3.4-5.0); ANION GAP 12.1 (8-16); CALCIUM 8.3 mg/dL (8.5-10.1); CARBON DIOXIDE 27.1 mmol/L (21-32); CREATININE 0.6 mg/dL (0.6-1.3); POTASSIUM 3.2 mmol/L (3.5-5.1); TOTAL BILIRUBIN 1.2 mg/dL (0.0-1.0); TOTAL PROTEIN, SERUM 6.2 g/dL (6.4-8.2)
[2016-10-31] MEDS: LORazepam 1 MG TAB PO SCH ×2 (06:37→12:18)
--- NOTE | 2016-10-31 06:38 | NUR ---
PT STILL WITH SOME TREMORS ON THE HANDS. ATIVAN PO ROUTINE GIVEN
--- NOTE | 2016-10-31 07:15 | NUR ---
ENDORSED PT IN STABLE CONDITION TO AM NURSE.
--- NOTE | 2016-10-31 07:17 | NUR ---
RECEIVED REPORT FROM NIGHT RN. PT RESTING IN BED. AAOX4. NO S/S OF ACUTE DISTRESS. TELE BOX IN PLACE. IV SITE PATENT AND INTACT. PT DENIES PAIN. SLIGHT TREMORS NOTED. CALL LIGHT WITHIN REACH. SAFETY MEASURES ENSURED. WILL CONTINUE TO MONITOR.
[2016-10-31 08:00] VITALS: BP 124/91
[2016-10-31] MEDS: NICOTINE TRANSD SYS 7 MG/24 HR PATCH TD SCH (09:00)
[2016-10-31] MEDS ORDERED: levETIRAcetam 500 MG TAB PO SCH (09:00)
--- NOTE | 2016-10-31 09:00 | NUR ---
PT'S PREVIOUS NICOTINE PATCH NOT IN PLACE. PT STATES IT CAME OFF LAST NIGHT. PT CHECKED. NO PATCH FOUND. NEW PATCH APPLIED TO RIGHT UPPER ARM.
[2016-10-31] MEDS: FOLIC ACID 1 MG TAB PO SCH (09:20)
[2016-10-31] MEDS: THIAMINE 100 MG TAB PO SCH (09:21)
[2016-10-31] MEDS: MULTIVITAMIN 1 TAB PO SCH (09:21)
--- NOTE | 2016-10-31 10:10 | NUR ---
PT RESTING IN BED. NO S/S OF ACUTE DISTRESS. PT DENIES PAIN. IV SITE PATENT AND INTACT. CALL LIGHT WITHIN REACH. SAFETY MEASURES ENSURED. WILL CONTINUE TO MONITOR.
--- NOTE | 2016-10-31 11:16 | NUR ---
PT CLEARED BY MD TO SMOKE. PT TAKEN OFF UNIT WITH SECURITY. NO S/S OF ACUTE DISTRESS. PT DENIES PAIN.
--- NOTE | 2016-10-31 11:29 | NUR ---
PT BACK ON UNIT. NO S/S OF ACUTE DISTRESS. PT DENIES PAIN. IV SITE PATENT AND INTACT. CALL LIGHT WITHIN REACH. SAFETY MEASURES ENSURED. WILL CONTINUE TO MONITOR.
[2016-10-31] MEDS ORDERED: POTASSIUM CHLORIDE 10 MEQ TABER PO SCH (11:30)
[2016-10-31 12:00] VITALS: BP 120/74
[2016-10-31] MEDS: LORazepam 2 MG/ML VIAL IVP PRN (13:45)
--- NOTE | 2016-10-31 13:46 | NUR ---
PATIENT RESTLESS, AGITATED SHAKING ATIVAN 2MG IVP GIVEN.
--- NOTE | 2016-10-31 14:20 | NUR ---
PT OFF UNIT TO SMOKE. NO S/S OF ACUTE DISTRESS. PT DENIES PAIN. IV SITE PATENT AND INTACT. CALL LIGHT WITHIN REACH. SAFETY MEASURES ENSURED. WILL CONTINUE TO MONITOR.
--- NOTE | 2016-10-31 14:25 | NUR ---
PT IS RESTING IN BED. NO S/S OF ACUTE DISTRESS. TELE BOX ON. CALL LIGHT WITHIN REACH. SAFETY MEASURES ENSURED. WILL CONTINUE TO MONITOR.
[2016-10-31 15:49] VITALS: BP 120/74
[2016-10-31] MEDS ORDERED: THIA500T9 PO (15:51)
[2016-10-31] MEDS ORDERED: ESCI10TA61 PO (15:51)
[2016-10-31] MEDS ORDERED: LORA-476 PO (15:51)
[2016-10-31] MEDS ORDERED: MULT-405 PO (15:51)
[2016-10-31] MEDS ORDERED: [UNRECOGNIZED DRUG - OTHER] TD (15:51)
[2016-10-31] MEDS ORDERED: FOLI1TAB90 PO (15:51)
[2016-10-31] MEDS ORDERED: KEP500 PO (15:51)
--- NOTE | 2016-10-31 16:19 | NUR ---
PT CLEARED FOR DISCHARGE. NO S/S OF ACUTE DISTRESS. PT DENIES PAIN. IV TAKEN OUT TIP INTACT. DISCHARGE INSTRUCTIONS PROVIDED. PT VERBALIZED UNDERSTANDING. PT WHEELED OFF UNIT.
[2016-11-01 06:15] LABS: HEPATITIS B SURFACE ANTIGEN Negative (Negative); HEPATITIS C VIRUS ANTIBODY <0.1 s/co ratio (0.0-0.9)
== END 2016-10-31 16:19 | disposition home or self-care (01) | DRG 775 ==
LOC: MED 07:36 → MTU 09:52
PROVIDERS: ADMIT Preventive Medicine Preventive Medicine/Occupational Environmental Medicine; ATTEND Preventive Medicine Preventive Medicine/Occupational Environmental Medicine
DX: F10.231 Alcohol dependence with withdrawal delirium (principal); E44.0 Moderate protein-calorie malnutrition; G40.509 Epileptic seizures related to external causes, not intractable, without status epilepticus; E87.6 Hypokalemia; F17.200 Nicotine dependence, unspecified, uncomplicated; Z88.0 Allergy status to penicillin; Z68.23 Body mass index [BMI] 23.0-23.9, adult
CPT/HCPCS: 36415; 71010; 76700; 80053; 82150; 83690; 84484; 85025; 85610; 85730; 86803; 87081; 87340; 93005; 96365; 96366; 96368; 96375; 96376; 97530; 99285; A9153; G0482; J2001; J2060; J3411; J3475; J3480; J3490; J7030; J7042

== ENCOUNTER 2016-11-02 18:32 | Observation (INO) | payer MEDICAID ==
[~2016-11-02] VITALS: Ht 182.9 cm; Wt 78.5 kg
[2016-11-02] MEDS: NACL 0.9% 1,000 ML IV SCH (01:06)
[~2016-11-02 18:32] MED LIST changes: +KEP500 PO; +[UNRECOGNIZED DRUG - OTHER] TD
[2016-11-02 18:38] VITALS: BP 98/62
--- NOTE | 2016-11-02 20:15 | NUR ---
Patient taken to [facility] via wheelchair per tech.
--- NOTE | 2016-11-02 20:36 | NUR ---
PA student evaluating patient.
--- NOTE | 2016-11-02 20:52 | NUR ---
Dr. Perez evaluating patient.
[2016-11-02] MEDS ORDERED: NACL 0.9% 1,000 ML IV ONE (20:55)
[2016-11-02] MEDS ORDERED: LORazepam 1 MG TAB PO ONE (20:55)
[2016-11-02] MEDS ORDERED: THIAMINE 200 MG/2 ML VIAL IV ONE (20:55)
[2016-11-02 21:24] LABS: BASOPHILS # (AUTO) 0.1 K/uL (0.00-0.22); BASOPHILS % (AUTO) 0.8 % (0.0-2.0); EOSINOPHILS # (AUTO) 0.1 K/uL (0-0.4); EOSINOPHILS % (AUTO) 1.1 % (0.0-4.0); HEMOGLOBIN 15.4 g/dL (12.0-18.0); LYMPHOCYTES # (AUTO) 1.1 K/uL (2.0-11.5); LYMPHOCYTES % (AUTO) 10.5 % (20.5-51.1); MEAN CORPUSCULAR HEMOGLOBIN 32 pg (27-31); MEAN CORPUSCULAR HGB CONC 33 g/dL (33-37); MEAN CORPUSCULAR VOLUME 98 fL (80-94); MONOCYTES # (AUTO) 0.3 K/uL (0.8-1.0); MONOCYTES % (AUTO) 2.6 % (1.7-9.3); PLATELET COUNT (AUTO) 172 K/uL (140-450); RED BLOOD CELL COUNT(AUTO) 4.79 MIL/uL (4.20-6.10); RED CELL DISTRIBUTION WIDTH 16.2 % (11.6-13.7); WHITE BLOOD COUNT (AUTO) 10.6 K/uL (4.8-10.8)
--- NOTE | 2016-11-02 21:24 | NUR ---
Patient going to CT and XRAY via wheelchair per tech.
--- NOTE | 2016-11-02 21:40 | NUR ---
PT PRESENTS TO ER W/C/O RIGHT HIP PAIN S/P MECHANICAL FALL AT HOME LAST NOC AFTER DRINKING HEAVILY. HX ETOH. AAO X4, UNABLE TO AMBULATORY AT THIS TIME. RESPIRATIONS ROOM AIR, EVEN AND UNLABORED. C/O RT. HIP PAIN. VSS, HR 140, NO S/SX OF DISTRESS AT THIS TIME. ER MD MADE AWARE OF PT. STATUS.
[2016-11-02 21:48] LABS: PROTHROMBIN TIME 9.1 secs (10.8-13.4)
--- NOTE | 2016-11-02 21:48 | NUR ---
Patient back from XRAY via wheelchair per tech taken to bed 04.
[2016-11-02 21:50] LABS: ANION GAP 16.1 (8-16); CARBON DIOXIDE 27.3 mmol/L (21-32); POTASSIUM 3.4 mmol/L (3.5-5.1)
[2016-11-02 21:51] LABS: ALBUMIN 3.6 g/dL (3.4-5.0); CALCIUM 8.9 mg/dL (8.5-10.1); CREATININE 0.7 mg/dL (0.6-1.3); TOTAL BILIRUBIN 0.6 mg/dL (0.0-1.0); TOTAL PROTEIN, SERUM 7.5 g/dL (6.4-8.2)
--- NOTE | 2016-11-02 22:00 | NUR ---
Patient went to CT via wheelchair per tech.
[2016-11-02] MEDS ORDERED: LORazepam 2 MG/ML VIAL IVP ONE (22:55)
[2016-11-02 23:40] LABS: APPEARANCE,URINE HAZY (CLEAR); BILIRUBIN,URINE 1+ (NEGATIVE); BLOOD, URINE TRACE-L (NEGATIVE); COLOR,URINE BROWN (YELLOW); LEUKOCYTE ESTERASE ,URINE NEGATIVE (NEGATIVE); NITRITE, URINE NEGATIVE (NEGATIVE); PROTEIN,URINE 2+ (NEGATIVE); UGLUCOSE NEGATIVE (NEGATIVE)
[2016-11-02] MEDS ORDERED: ACETAMINOPHEN EXTRA STRENGTH 500 MG TAB PO PRN (23:45)
[2016-11-02] MEDS ORDERED: HYDROcodone/APAP 5/325 MG 1 TAB TAB PO PRN (23:50)
[2016-11-02] MEDS ORDERED: ACETAMINOPHEN 325 MG TAB PO PRN (23:50)
[2016-11-02] MEDS ORDERED: ONDANSETRON 4 MG/2 ML VIAL IVP PRN (23:50)
[2016-11-02] MEDS ORDERED: LORazepam 2 MG/ML VIAL IVP PRN (23:55)
[2016-11-02 23:58] VITALS: BP 128/85
--- NOTE | 2016-11-02 23:58 | NUR ---
ADMITTED FORM ER A50M .TELE PT WHO ARRIVED TO THE MST UNIT BY CHANTAL. AWAKE ,LAERT AND ORIENTED X4. CAME DUE TO SYNCOPE S/P FALL. NO C/P ANY PAIN AT THIS TIME. WITH ABRASION ON RT ELBOW, BUMP ON THE LT SIDE BACK OF HEAD, BOTH ELBOW SWOLLEN,REDNESS ON BOTH KNEES LT LEG, AND FOREHEAD, AND OLD SCAB ON UPPER LIP . HAS HL ON THE RT WRIST G#18. CLEAR AND PATENT. PLAN OF CARE DISCUSSED AND VERBALIZED UNDERSTANDING. CALL LIGHT PLACED WITHIN EASY REACH. BED ON LOW POSITION,BED ALARM ON. WILL CONTINUE TO MONITOR.
--- NOTE | 2016-11-03 | NUR ---
Patient will be admitted [facility]. Admited to TELEMETRY. Will go to [id number]. Belongings list completed. Report to KARLIE LANDRY.
[2016-11-03 00:05] LABS: BARBITURATE, URINE NEGATIVE ng/ml (NEG <=200)
[2016-11-03 00:06] LABS: AMPHETAMINE, URINE NEGATIVE ng/ml (NEG <=1000); BENZODIAZEPINE, URINE NEGATIVE ng/mL (NEG <=200); CANNABINOID, URINE NEGATIVE ng/mL (NEG <=50); COCAINE, URINE NEGATIVE ng/mL (NEG <=300); OPIATE, URINE NEGATIVE ng/mL (NEG <=2000); PHENCYCLIDINE SCREEN,URINE NEGATIVE ng/mL (NEG <=25)
[2016-11-03 01:03] LABS: BACTERIA,URINE None Seen /HPF (None Seen); ICTOTEST NEGATIVE (NEGATIVE); MUCUS,URINE 4+ /LPF (None Seen); RBC,URINE 0-5 (RARE) /HPF (0-5); SQUAMOUS EPITHELIAL CELL,UR 0-3 (FEW) /LPF (0-3 (FEW)); WBC,URINE 0-5 (RARE) /HPF (0-5)
--- NOTE | 2016-11-03 01:06 | NUR ---
LATE ENTRY: THIS IS TO AMEND THE IV FLUIDS THAT WAS STARTED , CORRECTION OF DATE FROM October TO October.
--- NOTE | 2016-11-03 02:00 | NUR ---
ASLEEP. NO S/S DISTRESS NOTED.
--- NOTE | 2016-11-03 04:00 | NUR ---
BLE SCD MACHINE ON. PT AWARE OF THE BENEFIT.
[2016-11-03 04:33] LABS: FREE T4 (FREE THYROXINE) 1.22 ng/dL (0.76-1.46); THYROID STIMULATING HORMONE 0.23 uIU/mL (0.34-3.76)
[2016-11-03 04:40] VITALS: BP 146/84
--- NOTE | 2016-11-03 06:00 | NUR ---
NO DIZZINESS NOR PAIN NOTED .
[2016-11-03 06:06] LABS: BASOPHILS # (AUTO) 0.2 K/uL (0.00-0.22); BASOPHILS % (AUTO) 2.1 % (0.0-2.0); EOSINOPHILS # (AUTO) 0.1 K/uL (0-0.4); EOSINOPHILS % (AUTO) 1.3 % (0.0-4.0); HEMATOCRIT 37.8 % (36-52); LYMPHOCYTES # (AUTO) 1.2 K/uL (2.0-11.5); LYMPHOCYTES % (AUTO) 15.7 % (20.5-51.1); MEAN CORPUSCULAR HEMOGLOBIN 34 pg (27-31); MEAN CORPUSCULAR HGB CONC 34 g/dL (33-37); MEAN CORPUSCULAR VOLUME 98 fL (80-94); MONOCYTES # (AUTO) 0.9 K/uL (0.8-1.0); MONOCYTES % (AUTO) 11.4 % (1.7-9.3); NEUTROPHILS # (AUTO) 5.1 K/uL (1.8-7.7); NEUTROPHILS % (AUTO) 69.5 % (42.2-75.2); PLATELET COUNT (AUTO) 139 K/uL (140-450); RED BLOOD CELL COUNT(AUTO) 3.86 MIL/uL (4.20-6.10); RED CELL DISTRIBUTION WIDTH 16.1 % (11.6-13.7); WHITE BLOOD COUNT (AUTO) 7.5 K/uL (4.8-10.8)
[2016-11-03 06:35] LABS: MAGNESIUM 1.3 mg/dL (1.8-2.4); PHOSPHORUS 3.2 mg/dL (2.5-4.9)
--- NOTE | 2016-11-03 07:38 | NUR ---
ENDORSED PT IN STABLE CONDITION TO AM NURSE.
--- NOTE | 2016-11-03 07:39 | NUR ---
REPORT RECEIVED FROM NIGHT NURSE, PT RESTING QUIETLY, RESP EVEN UNLABORED ON ROOM AIR IN NAD, SKIN WARM DRY COLOR WNL, AOX4, IV FLUSHED, INFUSING WELL, SITE CLEAR, PT DENIES PAIN OR DISCOMFORT, PLAN OF CARE DISCUSSED, CALL [place]O WITHIN REACH, SZ PADS IN PLACE, BED LOCKED IN LOW POSITION, WILL CONTINUE TO MONITOR.
[2016-11-03 07:43] LABS: CALCIUM 8.1 mg/dL (8.5-10.1); CARBON DIOXIDE 31.1 mmol/L (21-32); CREATININE 0.7 mg/dL (0.6-1.3); POTASSIUM 3.1 mmol/L (3.5-5.1)
[2016-11-03 08:00] VITALS: BP 147/88
[2016-11-03] MEDS: NACL 0.9% 1,000 ML IV SCH (08:13)
[2016-11-03 08:15] LABS: CHOL/HDL RATIO 2.2 (1-4.5)
[2016-11-03] MEDS ORDERED: MULTIVITAMIN 1 TAB PO SCH (09:00)
[2016-11-03] MEDS ORDERED: FOLIC ACID 1 MG TAB PO SCH ×2 (09:00)
[2016-11-03] MEDS: DOCUSATE SODIUM 100 MG GELCAP PO SCH ×2 (09:00→09:19)
[2016-11-03] MEDS ORDERED: THIAMINE 100 MG TAB PO SCH (09:00)
[2016-11-03] MEDS ORDERED: LORazepam 1 MG TAB PO SCH (09:00)
--- NOTE | 2016-11-03 09:53 | NUR ---
PATIENT HAS BEEN SCREENED AND CATEGORIZED LOW NUTRITION RISK. PATIENT WILL BE SEEN WITHIN 7 DAYS OF ADMISSION. 11/09/[address]
--- NOTE | 2016-11-03 10:02 | NUR ---
PT SLEEPING QUIETLY IN NAD, RESP EVEN UNLABORED, SKIN WARM DRY COOLOR WNL, CALL [place]O WITHIN REACH, SIDE RAILS UP SZ PREC IN PLACE, ALL SAFETY MEASURES IN PLACE, WILL CONTINUE TO MONITOR
[2016-11-03 12:00] VITALS: BP 146/80
--- NOTE | 2016-11-03 12:20 | NUR ---
DC INSTRUCTION GIVEN AND EXPLAINED TO PT, PT VERBALIZED FULL UNDERSTANDING, PT UP OUT OF BED WITHOUT PROBLEM, IV DC'D CATH TIP INTACT, BLEEDING CONTROLLED, PT CALLED CAB TO GO HOME, PT ESCORTED OUT IN WHEELCHAIR.
[2016-11-03] MEDS ORDERED: levETIRAcetam 500 MG TAB PO SCH (21:00)
== END 2016-11-03 12:20 | disposition home or self-care (01) ==
LOC: MED 18:33 → MTU 23:18
PROVIDERS: ADMIT Student in an Organized Health Care Education/Training Program; ATTEND Student in an Organized Health Care Education/Training Program
DX: F10.129 Alcohol abuse with intoxication, unspecified (principal); M25.551 Pain in right hip; M50.20 Other cervical disc displacement, unspecified cervical region; R51 Headache; W19.XXXA Unspecified fall, initial encounter
CPT/HCPCS: 36415; 70450; 71010; 72125; 73080; 73502; 80048; 80053; 80061; 80305; 81001; 83036; 83690; 83735; 83880; 84100; 84439; 84443; 84484; 85025; 85610; 85730; 87081; 93005; 96361; 96374; 96375; 99285; G0378; G0482; J2060; J3411; J7030

== ENCOUNTER 2016-11-10 13:08 | Observation (INO) | payer MEDICAID ==
[~2016-11-10] VITALS: Ht 182.9 cm; Wt 76.7 kg
[2016-11-10 13:38] VITALS: BP 136/79
[2016-11-10] MEDS ORDERED: LORazepam 2 MG/ML VIAL IVP ONE ×3 (15:20→17:45)
[2016-11-10] MEDS ORDERED: MULTIVITAMIN-12 10 ML, THIAMINE 100 MG, MAGNESIUM SULFATE 50% 2,000 MG, FOLIC ACID 5 MG... IV ONE ×5 (15:20)
[2016-11-10 15:36] LABS: MEAN CORPUSCULAR HEMOGLOBIN 33 pg (27-31); RED CELL DISTRIBUTION WIDTH 15.2 % (11.6-13.7)
--- NOTE | 2016-11-10 15:40 | NUR ---
PT WHEELCHAIR TO ER BED #7.
[2016-11-10 15:44] LABS: BILIRUBIN,URINE 3+ (NEGATIVE); BLOOD, URINE 1+ (NEGATIVE); LEUKOCYTE ESTERASE ,URINE NEGATIVE (NEGATIVE); NITRITE, URINE POSITIVE (NEGATIVE); PH,URINE 6.5 (5.0-9.0); PROTEIN,URINE 3+ (NEGATIVE); UGLUCOSE TRACE (NEGATIVE); UROBILINOGEN,URINE >=8.0 EU/dL (0.2 - 1)
--- NOTE | 2016-11-10 15:44 | NUR ---
Patient being evaluated by physician at bedside.
[2016-11-10 15:50] LABS: APPEARANCE,URINE HAZY (CLEAR); COLOR,URINE AMBER (YELLOW)
[2016-11-10 15:50] LABS: HEMATOCRIT 43.8 % (36-52); HEMOGLOBIN 14.3 g/dL (12.0-18.0); MEAN CORPUSCULAR HGB CONC 33 g/dL (33-37); MEAN CORPUSCULAR VOLUME 101 fL (80-94); PLATELET COUNT (AUTO) 296 K/uL (140-450); RED BLOOD CELL COUNT(AUTO) 4.36 MIL/uL (4.20-6.10); WHITE BLOOD COUNT (AUTO) 12.8 K/uL (4.8-10.8)
[2016-11-10 15:54] LABS: ALANINE AMINOTRANSFERASE 139 U/L (12-78); ALBUMIN 3.9 g/dL (3.4-5.0); ALCOHOL, BLOOD < 3 mg/dL (<3); ALKALINE PHOSPHATASE 228 U/L (46-116); ANION GAP 24.8 (8-16); ASPARTATE AMINOTRANSFERASE 101 U/L (15-37); CARBON DIOXIDE 22.7 mmol/L (21-32); CHLORIDE 91 mmol/L (98-107); GFR ARICAN-AMERICAN 102 mL/min (>90); GFR NON ARICAN-AMERICAN 84 mL/min (>90); GLUCOSE 143 mg/dL (74-106); SODIUM SERUM 136 mmol/L (136-145); TOTAL BILIRUBIN 2.5 mg/dL (0.0-1.0); TOTAL PROTEIN, SERUM 7.6 g/dL (6.4-8.2); UREA NITROGEN, BLOOD 12 mg/dL (7-18)
[2016-11-10 15:59] LABS: ICTOTEST NEGATIVE (NEGATIVE); RBC,URINE 3-10 (FEW) /HPF (0-5)
[2016-11-10 16:00] LABS: BACTERIA,URINE FEW /HPF (None Seen); SQUAMOUS EPITHELIAL CELL,UR FEW /LPF (0-3 (FEW)); WBC,URINE NONE SEEN /HPF (0-5)
--- NOTE | 2016-11-10 16:02 | NUR ---
51/M present to ER c/o tremors, mild nausea, loose stools, denies audiory/visual hallucinations---- admits last etoh 1am today. hx-----alcohol abuse, withdrawal seizure. Patient denies pain at this time. AAOx4 at this time. ERMD notified of patient status.
[2016-11-10 16:09] LABS: BAND % (MANUAL) 4 % (0-8); LYMPHOCYTES % (MANUAL) 6 % (20-46); MONOCYTES % (MANUAL) 7 % (5-12); NEUTROPHILS % (MANUAL) 83 (43-65); PLATELET ESTIMATE ADEQUATE
[2016-11-10 16:15] LABS: POTASSIUM 2.5 mmol/L (3.5-5.1); SALICYLATE < 2.8 mg/dL (2.8-20.0)
[2016-11-10 16:16] LABS: ACETAMINOPHEN < 0.5 ug/ml (10-30)
[2016-11-10] MEDS ORDERED: POTASSIUM CHL 20 MEQ / DEXT 5% 1,000 ML IV ONE (16:25)
--- NOTE | 2016-11-10 17:05 | NUR ---
PATIENT RESTING. DENIES N/V/D; SKIN IS PINK/WARM/DRY; AAOX4;PATIENT STATES PAIN OF 0/10 AT THIS TIME; PATIENT POSITIONED FOR COMFORT; HOB ELEVATED; BEDRAILS UP X2; BED DOWN. ER MD MADE AWARE OF PT STATUS.
[2016-11-10] MEDS ORDERED: DOCUSATE SODIUM 100 MG GELCAP PO PRN (17:55)
[2016-11-10] MEDS ORDERED: MORPHINE SULFATE 2 MG/ML SYR IVP PRN (17:55)
[2016-11-10] MEDS ORDERED: THIAMINE 200 MG/2 ML VIAL IM ONE (18:00)
[2016-11-10] MEDS ORDERED: LORazepam 2 MG/ML VIAL IVP PRN ×2 (18:00→18:30)
[2016-11-10] MEDS ORDERED: LEVOFLOXACIN 250 MG/D5 PREMIX 50 ML IV ONE (18:10)
[2016-11-10 18:48] LABS: PARTIAL THROMBOPLASTIN TIME 23.6 secs (22-35.6); PROTHROMBIN TIME 9.4 secs (10.8-13.4)
[2016-11-10 18:52] LABS: CHOL/HDL RATIO 1.8 (1-4.5); MAGNESIUM 1.3 mg/dL (1.8-2.4); PHOSPHORUS 3.2 mg/dL (2.5-4.9)
--- NOTE | 2016-11-10 18:58 | NUR ---
PATIENT TRANSPORTED TO ROOM VIA GURNEY IN STABLE CONDITION WITH ALL BELONGINGS TO ROOM 107 A MST NURSE AT BEDSIDE.
[2016-11-10] MEDS ORDERED: POTASSIUM CHLORIDE 10 MEQ TABER PO SCH (19:00)
[2016-11-10 19:02] LABS: AMPHETAMINE, URINE NEG. ng/ml (NEG <=1000); BARBITURATE, URINE NEG. ng/ml (NEG <=200); BENZODIAZEPINE, URINE NEG. ng/mL (NEG <=200); CANNABINOID, URINE NEG. ng/mL (NEG <=50); COCAINE, URINE NEG. ng/mL (NEG <=300); OPIATE, URINE NEG. ng/mL (NEG <=2000); PHENCYCLIDINE SCREEN,URINE NEG. ng/mL (NEG <=25)
--- NOTE | 2016-11-10 19:30 | NUR ---
RECEIVED REPORT FROM DAY RN FOR CONTINUITY OF CARE. 51 Y.O. MALE ARRIVED ON UNIT AT 1850 WITH DX: ALCOHOL INTOXICATION. PATIENT IS A&OX4, DISCUSSED PLAN OF CARE WITH PATIENT, VERBALIZED UNDERSTANDING. WRISTBANDS APPLIED AND PT ORIENTED TO ROOM. SHIFT ASSESSMENT DONE, VS TAKEN, STABLE AT THIS TIME. IV TO RT FA 18 GAUGE PATENT AND FLUSHED. IV TO LT AC 20 GAUGE PATENT AND INFUSING FLUIDS. SKIN INTACT. SAFETY/ FALL/SEIZURE PRECAUTIONS ENFORCED. CALL LIGHT WITHIN REACH. WILL CONTINUE TO MONITOR.
[2016-11-10 20:00] VITALS: BP 144/84
[2016-11-10] MEDS ORDERED: LEVOFLOXACIN 250 MG/D5 PREMIX 50 ML IV SCH (20:00)
--- NOTE | 2016-11-10 20:03 | NUR ---
SPOKE TO Soto DOS SANTOS INFORMED OF LACTIC ACID LEVEL, NS AND LACTIC ACID LAB DRAW RECEIVED, INFORMED MD UNABLE TO PUT TELEPHONE ORDER FOR HIS GROUP, PER MD "PUT ORDERS I DO NOT HAVE MY COMPUTER AT THIS TIME." CHARGE NURSE INFORMED. WILL FOLLOW OUT GIVEN.
[2016-11-10 20:14] LABS: THYROID STIMULATING HORMONE 1.66 uIU/mL (0.34-3.76)
[2016-11-10] MEDS: LORazepam 1 MG TAB PO SCH (21:02)
--- NOTE | 2016-11-10 21:02 | NUR ---
DUE MEDICATIONS ADMINISTERED, TOLERATED WELL. PT IV TO LT AC DISLODGED, CANNULA INTACT. WILL CONTINUE TO MONITOR.
--- NOTE | 2016-11-10 22:00 | NUR ---
PT SLEEPING AT THIS TIME. NO S/S OF DISTRESS OR DISCOMFORT NOTED. WILL CONTINUE TO MONITOR.
[2016-11-10 23:40] LABS: ANION GAP 9.1 (8-16); CALCIUM 7.8 mg/dL (8.5-10.1); CARBON DIOXIDE 31.8 mmol/L (21-32); CREATININE 0.6 mg/dL (0.6-1.3)
[2016-11-11] VITALS: BP 129/79
--- NOTE | 2016-11-11 | NUR ---
VS TAKEN, STABLE. PT SLEEPING AT THIS TIME, NO S/S OF DISTRESS NOTED. CALL LIGHT WITHIN REACH.
[2016-11-11 00:03] LABS: POTASSIUM 2.9 mmol/L (3.5-5.1)
--- NOTE | 2016-11-11 01:58 | NUR ---
PATIENT ASLEEP AT THIS TIME. NO S/S OF DISTRESS OR DISCOMFORT NOTED. CALL LIGHT IN REACH.
[2016-11-11] MEDS: NACL 0.9% 1,000 ML IV SCH ×3 (03:19→13:55)
[2016-11-11 04:00] VITALS: BP 140/78
--- NOTE | 2016-11-11 04:00 | NUR ---
VS TAKEN, STABLE. PT VOIDED IN URINAL, 300 ML LIGHT GILLES. CALL LIGHT WITHIN REACH.
[2016-11-11] MEDS: LORazepam 1 MG TAB PO SCH ×2 (04:50→13:22)
--- NOTE | 2016-11-11 06:04 | NUR ---
PT SLEEPING AT THIS TIME. NO S/S OF DISTRESS OR DISCOMFORT NOTED. WILL CONTINUE TO MONITOR.
[2016-11-11 06:15] LABS: BASOPHILS # (AUTO) 0.1 K/uL (0.00-0.22); BASOPHILS % (AUTO) 1.2 % (0.0-2.0); EOSINOPHILS # (AUTO) 0.1 K/uL (0-0.4); EOSINOPHILS % (AUTO) 1.1 % (0.0-4.0); HEMATOCRIT 36.5 % (36-52); HEMOGLOBIN 12.4 g/dL (12.0-18.0); LYMPHOCYTES # (AUTO) 0.7 K/uL (2.0-11.5); LYMPHOCYTES % (AUTO) 13.3 % (20.5-51.1); MEAN CORPUSCULAR HEMOGLOBIN 34 pg (27-31); MEAN CORPUSCULAR HGB CONC 34 g/dL (33-37); MEAN CORPUSCULAR VOLUME 100 fL (80-94); MONOCYTES # (AUTO) 0.4 K/uL (0.8-1.0); MONOCYTES % (AUTO) 7.5 % (1.7-9.3); NEUTROPHILS % (AUTO) 76.9 % (42.2-75.2); PLATELET COUNT (AUTO) 191 K/uL (140-450); RED BLOOD CELL COUNT(AUTO) 3.64 MIL/uL (4.20-6.10); RED CELL DISTRIBUTION WIDTH 14.8 % (11.6-13.7); WHITE BLOOD COUNT (AUTO) 5.3 K/uL (4.8-10.8)
[2016-11-11 06:36] LABS: CARBON DIOXIDE 30.8 mmol/L (21-32); CREATININE 0.6 mg/dL (0.6-1.3)
[2016-11-11 06:38] LABS: POTASSIUM 2.8 mmol/L (3.5-5.1)
--- NOTE | 2016-11-11 07:05 | NUR ---
SPOKE TO DR. ANTON, INFORMED MD OF K 2.8 CRITICAL AND MRSA ORDER NEEDED.
--- NOTE | 2016-11-11 07:30 | NUR ---
RECEIVED ON BED AAOX4. NO SOB NOTED. NO C/O PAIN AT THIS TIME IV TO RT AC PATENT AND INTACT. CHEST CLEAR. ABDOMEN SOFT, BOWEL SOUNDS PRESENT. NO EDEMA NOTED. ON SEIZURE PRECAUTIONS, SIDE RAILS PADDED. INSTRUCTED TO CALL FOR ASSISTANCE, CALL LIGHT WITHIN REACH. PT VERBALIZED UNDERSTANDING.
--- NOTE | 2016-11-11 07:39 | NUR ---
ENDORSED PATIENT TO DAY RN FOR CONTINUITY OF CARE, PATIENT IS IN STABLE CONDITION.
[2016-11-11 08:00] VITALS: BP 131/90
[2016-11-11] MEDS ORDERED: POTASSIUM CHLORIDE 10 MEQ TABER PO SCH (08:08)
[2016-11-11] MEDS ORDERED: POTASSIUM CHLORIDE 40 MEQ, LIDOCAINE 1% 25 MG in NACL 0.9% 250 ML IV SCH (09:00)
[2016-11-11] MEDS ORDERED: DOCUSATE SODIUM 100 MG GELCAP PO SCH (09:00)
[2016-11-11] MEDS ORDERED: FOLIC ACID 1 MG TAB PO SCH (09:00)
--- NOTE | 2016-11-11 10:16 | NUR ---
PATIENT HAS BEEN SCREENED AND CATEGORIZED MODERATE NUTRITION RISK. PATIENT WILL BE SEEN WITHIN 3-5 DAYS OF ADMISSION. 11/13/16-11/15/[address]
[2016-11-11 12:00] VITALS: BP 143/90
[2016-11-11 12:58] LABS: CALCIUM 8.1 mg/dL (8.5-10.1); CARBON DIOXIDE 27.4 mmol/L (21-32); CREATININE 0.6 mg/dL (0.6-1.3); POTASSIUM 3.4 mmol/L (3.5-5.1)
[2016-11-11] MEDS ORDERED: POTASSIUM CHLORIDE 20% 40 MEQ/15 ML UDC PO SCH (13:00)
[2016-11-11] MEDS ORDERED: MAG SULF 2000 MG/WATER PREMIX 50 ML IV SCH (13:00)
[2016-11-11] MEDS ORDERED: MAGNESIUM OXIDE 400 MG TAB PO SCH (13:00)
[2016-11-11 16:00] VITALS: BP 144/73
[2016-11-11] MEDS ORDERED: THIAMINE 100 MG TAB PO SCH (16:00)
[2016-11-11] MEDS ORDERED: LACTULOSE 20 GM/30 ML UDC PO SCH (16:00)
[2016-11-11] MEDS ORDERED: LORA-476 PO (16:08)
--- NOTE | 2016-11-11 16:50 | NUR ---
CALLED PT'S SONS JHONATHAN([phone]) AND JUVE ([phone]), NO ANSWER, MESSAGES REGARDING THEIR FATHER'S DISCHARGE LEFT IN BOTH VOICEMAIL BOX. AWAITING FOR CALL BACK.
[2016-11-11] MEDS ORDERED: levETIRAcetam 500 MG TAB PO SCH (17:00)
[2016-11-11] MEDS ORDERED: KEP500 PO ×2 (17:02→17:05)
[2016-11-11] MEDS ORDERED: LEVO250T2 PO (17:02)
--- NOTE | 2016-11-11 18:00 | NUR ---
URINE SPECIMEN COLLECTED AND SENT TO LAB ORDERED FOR CULTURE. DR. ANTON WILL FOLLOW UP WITH SENSITIVITY OUT PT.
--- NOTE | 2016-11-11 18:00 | NUR ---
PT'S SON JUVE IS HERE TO STUDY LEAD PT. DISCHARGE INSTRUCTIONS AND PRESCRIPTIONS GIVEN TO PT AND SON BOTH VERBALIZED UNDERSTANDING OF TH INSTRUCTIONS GIVEN AND THE NEED TO FOLLOW UP AT [facility] FOR FOLLOW UP WITHIN IN 3 DAYS. PT'S SON SIGNED THE D/C PAPERS. ARM BAND AND IV REMOVED, CANNULA TIP INTACT.
--- NOTE | 2016-11-11 18:15 | NUR ---
PT WHEELED OUT TO THE PARKING IN STABLE CONDITION. NO SOB NOTED. NO C/O PAIN AT THIS TIME. PT IS GOING HOME TO HIS SON'S HOUSE.
[2016-11-12] MEDS ORDERED: THIAMINE 100 MG TAB PO SCH (09:00)
[2016-11-12] MEDS ORDERED: levETIRAcetam 500 MG TAB PO SCH (09:00)
== END 2016-11-11 18:15 | disposition home or self-care (01) ==
LOC: MED 13:08 → MTU 17:58 → INTOOBSV 17:58 → UNDOADMOB 17:58 → MTU 11-11 08:21
PROVIDERS: ADMIT Student in an Organized Health Care Education/Training Program; ATTEND Student in an Organized Health Care Education/Training Program
DX: F10.129 Alcohol abuse with intoxication, unspecified (principal); E87.6 Hypokalemia; M50.30 Other cervical disc degeneration, unspecified cervical region; N39.0 Urinary tract infection, site not specified; R00.0 Tachycardia, unspecified; R06.82 Tachypnea, not elsewhere classified; E80.6 Other disorders of bilirubin metabolism; E83.42 Hypomagnesemia
CPT/HCPCS: 36415; 70450; 80048; 80053; 80061; 80305; 81001; 82140; 82150; 83036; 83605; 83690; 83735; 83880; 84100; 84443; 85025; 85610; 85730; 87081; 87086; 93005; 96361; 96365; 96366; 96367; 96368; 96375; 96376; 99291; A9153; G0378; G0480; G0482; J1956; J2001; J2060; J3411; J3475; J3480; J3490; J7030; J7070